=== PATIENT | female | born 1955 | race Caucasian/White ===

== ENCOUNTER → 2016-10-20 | Outpatient (CLI) | payer BC ==
[~2016-10-20] MED LIST: CATHETER FLUSH 10 ML SYR IV PRN; HYDR-32; IOHEXOL 350 MG/ML 100 ML (OMNIPAQUE 350) VIAL IV ONE; NS 100 ML (IVPB) BAG IV ONE; SULFAMETHOXAZOLE; SYNTHROID; TRIMETHOPRIM
--- NOTE | 2016-10-20 13:13 | Diagnostic Imaging Report ---
PROCEDURE: CT abdomen and pelvis with and without contrast. TECHNIQUE: Precontrast acquisitions were acquired through the abdomen and pelvis. Multiple contiguous axial images were obtained through the abdomen and pelvis after the administration of intravenous contrast. INDICATION: Abdominal pain and pressure. 100 mL of Omnipaque 350 is administered intravenously. FINDINGS: The lung bases appear clear. There is a simple appearing hepatic cyst in the left lobe anteriorly measuring 4 cm. There is another simple appearing cyst measuring 1.2 cm in the anterior central aspect of the liver. These are larger compared to 2009 exam but without solid component seen. There are multiple calcified gallstones. The spleen is not enlarged. The adrenals appear unremarkable. The kidneys have symmetric enhancement and contrast excretion. No hydronephrosis. The unenhanced phase demonstrates no urinary tract stones. The abdominal aorta is normal in caliber. No para-aortic significantly enlarged lymph nodes are seen. Sutures near the base of the cecum is seen, may relate to prior appendectomy. Correlate with surgical history. There is no bowel obstruction. A few diverticula are seen in the sigmoid colon. No evidence of diverticulitis. No significant free fluid or fluid collection in the abdomen or pelvis is seen. The uterus and adnexa appear grossly unremarkable. There is mild left convexity scoliosis of the lumbar spine. IMPRESSION: 1. Cholelithiasis. 2. Diverticulosis. No diverticulitis. Dictated by: Dictated on workstation # [id number]
== END ==
LOC: RAD 09:17
PROVIDERS: ATTEND Obstetrics & Gynecology
DX: K80.20 Calculus of gallbladder without cholecystitis without obstruction (principal); K57.30 Diverticulosis of large intestine without perforation or abscess without bleeding; Z87.19 Personal history of other diseases of the digestive system
CPT/HCPCS: 74178

== ENCOUNTER → 2018-02-21 | Outpatient (CLI) | payer BC ==
[~2018-02-21] MED LIST changes: -CATHETER FLUSH 10 ML SYR IV PRN; -IOHEXOL 350 MG/ML 100 ML (OMNIPAQUE 350) VIAL IV ONE; -NS 100 ML (IVPB) BAG IV ONE
--- NOTE | 2018-02-21 12:59 | Diagnostic Imaging Report ---
Indication: Osteopenia. Comparison is made with prior DEXA scan from 02/10/2016. Bone mineral analysis in the lumbar spine and both hips was performed. Bone mineral density lumbar spine at L2-L4 is 1.156 with T score of -0.4. This compares with 1.013 and -1.6. Bone mineral density left femoral neck is 0.749 with T score of -2.1. This compares with 0.741 and -2.1. Bone mineral density right femoral neck is 0.794 with T score of -1.8. This compares with 0.796 and -1.7. Impression: Normal bone mineral density of the lumbar spine with osteopenia of bilateral femoral necks. Dictated by: Dictated on workstation # [id number]
== END ==
LOC: RAD 02-01 15:28
PROVIDERS: ATTEND Internal Medicine Endocrinology, Diabetes & Metabolism
DX: M85.88 Other specified disorders of bone density and structure, other site (principal)
CPT/HCPCS: 77080

== ENCOUNTER → 2018-10-04 | Outpatient (CLI) | payer BC ==
--- NOTE | 2018-10-04 12:22 | Diagnostic Imaging Report ---
EXAMINATION: Digital mammogram bilateral screening. The current study was also evaluated with a Computer Aided Detection (CAD) system. 3D tomosynthesis was also performed and reviewed. INDICATION: Screening. COMPARISON: This study was compared to the prior exams of 02/10/2016 and 11/04/2014. At this time, there are no current complaints. FINDINGS: The fibroglandular tissue in both breasts is dense. This does limit the sensitivity of this exam. Overall, there does not appear to have been any significant change when compared to the prior study. No primary or secondary sign of malignancy is noted. The 3D tomographic views also fail to show any evidence of malignancy. IMPRESSION: 1. There is no evidence of malignancy. 2. The patient should have her annual bilateral screening mammogram on schedule in September of 2019. ACR BI-RADS Category 1: Negative. Result letter will be mailed to the patient. Note: At least 10% of breast cancer is not imaged by mammography. Dictated by: Dictated on workstation # [id number]
== END ==
LOC: RAD 07:11
PROVIDERS: ATTEND Obstetrics & Gynecology
DX: Z12.31 Encounter for screening mammogram for malignant neoplasm of breast (principal)
CPT/HCPCS: 77067

== ENCOUNTER → 2020-02-24 | Outpatient (CLI) | payer BC ==
--- NOTE | 2020-02-24 09:55 | Diagnostic Imaging Report ---
INDICATION: Postmenopausal. COMPARISON: 02/21/2018. TECHNIQUE: The bone mineral density of the hips and spine was measured. FINDINGS: The total T score for the spine is -2.1. On the prior exam, the T score was -0.4. The current T score does indicate severe osteopenia. The total T score for the left hip is -1.6 and for the right hip -1.5. On the prior exam, the respective T scores were -1.6 and -1.3. The T score for the left femoral neck is -2.1 and for the right is -1.9. Previously, the T scores were -2.1 and -1.8. IMPRESSION: 1. There has been a decrease in the bone mineral density of the spine and the T score value now indicates severe osteopenia. 2. The bone mineral density of the hips and femoral necks has not changed significantly. These values fall within the range of osteopenia as well. AP Spine L1-L4: [BMD (g/cm2): 0.953] [T-Score: -2.1] [Z-Score: -0.4] [BMD Previous: 1.156] [BMD % Change: -17.6] LT Hip Neck: [BMD (g/cm2): 0.741] [T-Score: -2.1] [Z-Score: -0.6] LT Hip Total: [BMD (g/cm2):0.806] [T-Score:-1.6] [Z-Score: -0.4] [BMD Previous: 0.810] [BMD % Change: -0.5] RT Hip Neck: [BMD (g/cm2):0.780] [T-Score:-1.9] [Z-Score:-0.4] RT Hip Total: [BMD (g/cm2):0.818] [T-score:-1.5] [Z-Score:-0.3] [BMD Previous:0.842] [BMD % Change:-2.9] *Indicates significant change from prior examination based on 95% confidence level. World Health Organization criteria for BMD interpretation classify patients as Normal (T-score at or above -1.0), Osteopenic (T-score between -1.0 and -2.5) or Osteoporotic (T-score at or below -2.5). LIMITATIONS AND MODIFICATION: None. FRACTURE RISK (FRAX SCORE): The ten year probability of (%): Major Osteoporotic Fracture: [10.6] Hip Fracture: [1.8] IMPRESSION: 1. 2. 3. See below National Osteoporosis Foundation guidelines on when to potentially initiate pharmacologic therapy. Based on the National Osteoporosis Foundation Guidelines, pharmacologic treatment should be initiated in any of the following, unless clinical conditions suggest otherwise: * Any patient with prior fragility fracture of the hip or vertebrae. A spine fracture indicates 5X risk for subsequent spine fracture and 2X risk for subsequent hip fracture. * Osteoporosis (T-score <-2.5). * Postmenopausal women and men age 50 and older with low bone mass/osteopenia (T-score between -1.0 and -2.5) by DXA and 10-year major osteoporotic fracture greater than 20% or a 10-year probability of hip fracture greater than 3%. These fracture risks are supplied above in the FRAX score, if applicable. * Clinician judgement and/or patient preferences may indicate treatment for people with 10-year fracture probabilities above or below these levels. Dictated by: Dictated on workstation # [id number]
== END ==
LOC: RAD 08:30
PROVIDERS: ATTEND Internal Medicine Endocrinology, Diabetes & Metabolism
DX: M85.88 Other specified disorders of bone density and structure, other site (principal)
CPT/HCPCS: 77080

== ENCOUNTER → 2020-06-07 | Outpatient (CLI) | payer BC ==
--- NOTE | 2020-06-07 13:28 | Diagnostic Imaging Report ---
PROCEDURE: US Non-ob pelvis comp/trans. TECHNIQUE: Multiple Real-time grayscale images were obtained of the pelvis in various projections endovaginally. Transabdominal imaging was also performed. INDICATION: Dysfunctional uterine bleeding. COMPARISON: There are no prior studies available for comparison. FINDINGS: The uterus is not enlarged measuring 8.1 x 4.1 x 4.9 cm. The endometrial lining is not thickened measuring 2 mm. There is no focal mass involving the uterus to suggest a fibroid. Both ovaries are identified and are generally unremarkable. There is no pelvic mass or free fluid collection evident. IMPRESSION: 1. There is no evidence for an acute pelvic abnormality. 2. The endometrial lining is not thickened. Dictated by: Dictated on workstation # [id number]
--- NOTE | 2020-06-07 16:39 | Diagnostic Imaging Report ---
EXAMINATION: Digital mammogram bilateral screening with cad. INDICATION: Screening. COMPARISON: This study was compared to the prior exams of 10/04/2018, 02/10/2016, and 11/04/2014. PERSONAL HISTORY: At this time, there are no current complaints. FINDINGS: The fibroglandular tissue in both breasts is heterogeneously dense. This does limit the sensitivity of this exam. Overall, there does not appear to have been any significant change when compared to the prior study. No primary or secondary sign of malignancy is noted. IMPRESSION: There is no radiographic evidence for malignancy. ACR BI-RADS Category 1: Negative. Result letter will be mailed to the patient. Note: At least 10% of breast cancer is not imaged by mammography. Dictated by: Dictated on workstation # [id number]
== END ==
LOC: RAD 11:50
PROVIDERS: ATTEND Obstetrics & Gynecology
DX: Z12.31 Encounter for screening mammogram for malignant neoplasm of breast (principal); N93.9 Abnormal uterine and vaginal bleeding, unspecified
CPT/HCPCS: 76830; 76856; 77063; 77067

== ENCOUNTER 2020-09-22 11:50 | Outpatient (CLI) | payer BC ==
[~2020-09-22] VITALS: Ht 167.7 cm; Wt 63.1 kg
== END 2020-09-22 16:09 | disposition home or self-care (01) ==
LOC: PREOP 11:50
PROVIDERS: ATTEND Surgery
DX: Z01.818 Encounter for other preprocedural examination (principal)

== ENCOUNTER 2020-09-28 12:27 | Day surgery (SDC) | payer BC ==
[~2020-09-28] VITALS: Ht 167.7 cm; Wt 63.0 kg
[2020-09-28] VITALS (9 sets, daily range): BP systolic 107–135; BP diastolic 69–97
[~2020-09-28 12:27] MED LIST changes: +LACTATED RINGERS 1,000 ML IV ONE
[2020-09-28] MEDS ORDERED: LACTATED RINGERS 1,000 ML IV STA (12:30)
[2020-09-28] MEDS ORDERED: PROPOFOL INJECTION 50 ML IV ONE ×2 (12:53→13:09)
[2020-09-28] MEDS ORDERED: MIDAZOLAM 2 MG/2 ML (VERSED) VIAL ONE (12:53)
--- NOTE | 2020-09-28 13:38 | Progress Note-Post Operative ---
Post-Operative Progess Note Surgeon (s)/Java Application Developer (s) Surgeon BALJINDER LEE DO Java Application Developer: na Pre-Operative Diagnosis screening Post-Operative Diagnosis normal colon Procedure & Operative Findings Date of Procedure 09/28/20 Procedure Performed/Findings colonoscopy Anesthesia Type per lens grinder Estimated Blood Loss Estimated blood loss (mL): none Specimens/Packing Specimens Removed na BALJINDER LEE DO Sep 28, 2020 13:38
--- NOTE | 2020-09-28 13:39 | Discharge Inst-Simple/Standard ---
Discharge Inst-Standard Patient Instructions/Follow Up Plan of Care/Instructions/FU: repeat colonoscopy 10 years unless family hx of colon cancer or personal history of polyps. Any changes in bowel be re-evaluated at that time. Activity as Tolerated: Yes Discharge Diet: Regular Diet (high fiber) BALJINDER LEE DO Sep 28, 2020 13:39
--- NOTE | 2020-09-28 14:25 | Anesthesia-General Post-Op ---
MAC Patient Condition Mental Status/LOC: Same as Preop Cardiovascular: Satisfactory Nausea/Vomiting: Absent Respiratory: Satisfactory Pain: Controlled Complications: Absent Post Op Complications Complications None Follow Up Care/Instructions Patient Instructions None needed. Anesthesiology Discharge Order Discharge Order Patient is doing well, no complaints, stable vital signs, no apparent adverse anesthesia problems. No complications reported per nursing. MAYTE PATRICIA CRNA Sep 28, 2020 14:25
--- NOTE | 2020-09-28 17:01 | OPERATIVE REPORT ---
DATE OF SERVICE: 09/28/2020 PREOPERATIVE DIAGNOSIS: Screening colonoscopy. POSTOPERATIVE DIAGNOSIS: Diverticulosis. PROCEDURE: Colonoscopy. SURGEON: Baljinder Maddox DO ANESTHESIA: Per FURNITURE TECHNICIAN. ESTIMATED BLOOD LOSS: None. COMPLICATIONS: None. INDICATIONS: The patient is a 64-year-old female with need for screening colonoscopy. She understands risks and benefits of procedure and wished to proceed with procedure. Consent was signed in the chart. DESCRIPTION OF PROCEDURE: The patient was taken to the endoscopy suite, placed in left lateral recumbent position. Timeout was performed. Digital rectal exam was performed. No palpable polyps, masses or ulcerations. Scope was inserted in the rectum and advanced all the way to the ileocolonic anastomosis. Normal appearance. No polyps, masses or ulcerations. Scope was then slowly retracted back. There were no polyps, masses or ulcerations in the ileocecal anastomosis to the ascending, transverse, descending colon. In the sigmoid colon, a small amount of diverticulosis. No polyps, masses or ulcerations. Sigmoid was very redundant. Once in the rectum, scope was retroflexed noting no other pathology. Scope was returned to its normal position, slowly withdrawn until completely removed. The patient tolerated procedure well without any complications. She was taken to recovery room in stable condition. RECOMMENDATIONS: The patient will need repeat colonoscopy in 10 years unless family history of colon cancer, which would be 5 years. Any issues before that be seen at that time. Also recommended high fiber diet due to diverticulosis. Job ID: [id number] DocumentID: [id number] Dictated Date: 09/28/2020 13:41:25 Supervisor Grounds Date: 09/28/2020 17:00:58 Dictated By: BALJINDER MADDOX DO
== END 2020-09-28 14:30 | disposition home or self-care (01) ==
LOC: ENDO 12:27
PROVIDERS: ATTEND Surgery
DX: Z12.11 Encounter for screening for malignant neoplasm of colon (principal); K57.30 Diverticulosis of large intestine without perforation or abscess without bleeding; E03.9 Hypothyroidism, unspecified; Z79.899 Other long term (current) drug therapy; Z79.890 Hormone replacement therapy; Z90.49 Acquired absence of other specified parts of digestive tract

== ENCOUNTER → 2020-10-18 | Outpatient (CLI) | payer BC ==
[~2020-10-18] MED LIST changes: -LACTATED RINGERS 1,000 ML IV ONE
--- NOTE | 2020-10-18 14:44 | Diagnostic Imaging Report ---
PROCEDURE: Pelvic comp/transvaginal sonogram. TECHNIQUE: Complete transabdominal and transvaginal pelvic ultrasound was performed. In addition, limited pelvic Doppler was performed. INDICATION: Pelvic pain. Uterus is anteverted measuring 7.3 x 3.0 x 4.0 cm. Endometrium is 3 mm in thickness. No myometrial mass is detected. Right ovary measures 1.7 x 1.0 x 1.0 cm. There is blood flow to the right ovary. No adnexal mass or free fluid is seen. Left ovary was not visualized. A moderate vascularity in the left adnexa is noted which could be owing to pelvic congestion. IMPRESSION: Nonvisualized left ovary. There is vascularity to a left adnexa which could represent congestion. The study is otherwise unremarkable. Dictated by: Dictated on workstation # [id number]
== END ==
LOC: RAD 10:00
PROVIDERS: ATTEND Family Medicine
DX: R10.2 Pelvic and perineal pain (principal)
CPT/HCPCS: 76830; 76856

== ENCOUNTER → 2020-10-26 | Outpatient (CLI) | payer BC ==
[~2020-10-26] MED LIST changes: +CATHETER FLUSH 10 ML SYR IV PRN; +HOLD METFORMIN - RECEIVED CONTRAST 20 ML VIAL IV SCH; +IOHEXOL 350 MG/ML 100 ML (OMNIPAQUE 350) VIAL IV ONE; +NS 100 ML (IVPB) BAG IV ONE
[2020-10-26 07:07] LABS: CREATININE SERUM 1.01 MG/DL (0.60-1.30)
--- NOTE | 2020-10-26 08:35 | Diagnostic Imaging Report ---
EXAMINATION: CT abdomen and pelvis with intravenous contrast. TECHNIQUE: Multiple contiguous axial images were obtained through the abdomen and pelvis after the uneventful administration of intravenous contrast. All CT scans use one or more of the following dose optimizing techniques: automated exposure control, MA and/or KvP adjustment based on patient size and exam type or iterative reconstruction. HISTORY: Pelvic pressure. COMPARISON: 10/20/2016 FINDINGS: Limited views of the lower thorax are unremarkable. Cyst is present in liver. There are no suspicious liver lesions. There is no biliary ductal dilation. Gallbladder contains stones. Pancreas is normal. Spleen is normal. Adrenal glands are normal. The kidneys are normal. There is no hydronephrosis. Urinary bladder is normal. Visualized bowel is normal in caliber without obstruction or inflammation. No free fluid or air. No abdominal or pelvic lymphadenopathy. Aorta is normal in caliber without aneurysm. There are no suspicious osseous lesions. IMPRESSION: 1. Cholelithiasis, otherwise no acute abnormality. Dictated by: Dictated on workstation # [id number]
== END ==
LOC: RAD 06:41
PROVIDERS: ATTEND Family Medicine
DX: K80.20 Calculus of gallbladder without cholecystitis without obstruction (principal)
CPT/HCPCS: 36415; 74177; 82565; 84520

== ENCOUNTER → 2021-06-13 | Outpatient (CLI) | payer BC ==
[~2021-06-13] MED LIST changes: -CATHETER FLUSH 10 ML SYR IV PRN; -HOLD METFORMIN - RECEIVED CONTRAST 20 ML VIAL IV SCH; -IOHEXOL 350 MG/ML 100 ML (OMNIPAQUE 350) VIAL IV ONE; -NS 100 ML (IVPB) BAG IV ONE
--- NOTE | 2021-06-13 22:33 | Diagnostic Imaging Report ---
INDICATION: Digital mammogram bilateral screening. At this time there is no current complaint. COMPARISON: This study was compared to the prior exams of 06/07/2020, 10/04/2018 and 02/10/2016. EXAMINATION: Bilateral digital screening mammogram with CAD. 3D tomographic images were obtained and reviewed. The current study was also evaluated with a Computer Aided Detection (CAD) system. FINDINGS: The fibroglandular tissue in both breasts is dense. This does limit the sensitivity of this exam. Overall, there does not appear to have been any significant change when compared to the prior study. No primary or secondary sign of malignancy is noted. IMPRESSION: There is no radiographic evidence for malignancy. ACR BI-RADS Category 1: Negative. Result letter will be mailed to the patient. Note: At least 10% of breast cancer is not imaged by mammography. Dictated by: Dictated on workstation # [id number]
== END ==
LOC: RAD 15:45
PROVIDERS: ATTEND Family Medicine
DX: Z12.31 Encounter for screening mammogram for malignant neoplasm of breast (principal)
CPT/HCPCS: 77063; 77067

== ENCOUNTER → 2021-09-13 | Outpatient (CLI) | payer BC ==
--- NOTE | 2021-09-13 14:41 | Diagnostic Imaging Report ---
INDICATION: Neck pain and upper back pain. Time of Exam: 10:03 AM There is reversal of the normal cervical lordotic curvature. There is minimal anterolisthesis of C3 on C4. There is severe degenerative disease C4-C5 and C5-C6 levels with moderate disc space narrowing and marginal osteophyte formation. There is moderate degenerative disc disease C6-C7 levels. Prevertebral tissues are normal. No fractures are seen. A majority of the odontoid is obscured on the odontoid view. IMPRESSION: Cervical spondylosis with reversal of the normal cervical curvature as well as minimal anterolisthesis of C3 on C4. No acute bony abnormality is detected. Dictated by: Dictated on workstation # [id number]
--- NOTE | 2021-09-13 14:41 | Diagnostic Imaging Report ---
INDICATION: Upper back pain. There is normal thoracic kyphotic curvature. There is S-shaped thoracolumbar scoliotic curvature, convex to the right in the thoracic portion and convex to the left in the lumbar portion. Vertebral body heights appear to be well-maintained. No compression fractures are seen. There is some mid thoracic degenerative disc disease. Pedicles and paraspinous line are intact. No definite vertebral body anomaly is detected. IMPRESSION: Thoracolumbar scoliotic curvature and spondylosis. No acute bony abnormality is detected. Dictated by: Dictated on workstation # [id number]
== END ==
LOC: RAD 09:38
PROVIDERS: ATTEND Family Medicine
DX: M47.814 Spondylosis without myelopathy or radiculopathy, thoracic region (principal); M41.84 Other forms of scoliosis, thoracic region; M47.812 Spondylosis without myelopathy or radiculopathy, cervical region
CPT/HCPCS: 72040; 72072

== ENCOUNTER → 2021-12-14 | Outpatient (CLI) | payer BC ==
--- NOTE | 2021-12-14 07:49 | Diagnostic Imaging Report ---
PROCEDURE: US Gallbladder. TECHNIQUE: Multiple real-time grayscale images were obtained over the right upper quadrant in various projections. INDICATION: Gallstones, liver cyst COMPARISON: CT from 10/26/2020 FINDINGS: Echogenicity of the visible pancreas appears normal and size is normal. There does appear to be a 5 mm cystic structure at the anterior body of the pancreas. The tail is obscured by bowel gas. Imaged portions of the aorta and IVC are unremarkable. The liver is normal in size. Echogenicity appears normal. There is a large cyst in the left liver measuring 5.5 cm in greatest dimension. No solid liver lesions are seen and there is no biliary dilatation identified. The main portal vein is hepatopetal. The common bile duct measures 5 mm. The gallbladder wall is not thickened. There are multiple shadowing stones in the gallbladder, measuring up to 1.3 cm in diameter. Sonographic Rocha sign is negative. No free fluid is seen. The right kidney measures 9.8 cm in length. There is no hydronephrosis. IMPRESSION: 1. Cholelithiasis without findings of cholecystitis. 2. Large cyst in the left liver measuring up to 5.5 cm. 3. Small cystic structure at the anterior body of the pancreas. Consider nonemergent follow-up with MRCP. Dictated by: Dictated on workstation # [id number]
== END ==
LOC: RAD 06:58
PROVIDERS: ATTEND Family Medicine
DX: K80.20 Calculus of gallbladder without cholecystitis without obstruction (principal); K76.89 Other specified diseases of liver; K86.2 Cyst of pancreas
CPT/HCPCS: 76705

== ENCOUNTER → 2021-12-21 | Outpatient (CLI) | payer BC ==
--- NOTE | 2021-12-21 10:18 | Diagnostic Imaging Report ---
PROCEDURE: MR imaging cholangiography-pancreatography. TECHNIQUE: Multiplanar and multisequence MRI of the abdomen was performed without contrast. 3D reconstructions were made for the MRCP. INDICATION: Liver cyst. Possible abnormality in the pancreas. Further characterization. COMPARISON: 12/14/2021. 10/26/2020. FINDINGS: Simple appearing cyst is seen within the left hepatic lobe measuring 4.8 x 3.5 cm and 4.5 cm craniocaudal. This does not appear changed in size since the prior exam from 2020. A smaller cyst is seen adjacent to this. No suspicious hepatic lesions are identified. No evidence of signal drop on out of phase imaging to suggest hepatic steatosis. No intra or extrahepatic biliary dilation. The portal vein is patent. Cholelithiasis is seen within a nondistended gallbladder. No evidence of gallbladder wall thickening. The common bile duct is nondilated and measures 0.4 cm. The pancreatic duct is normal in size measuring 0.2 cm in the head of the pancreas. There is a small cyst within the body of the pancreas measuring 0.3 cm which appears to connect to the pancreatic duct. No peripancreatic inflammatory changes are seen. No suspicious pancreatic lesions. The spleen is upper limits of normal measuring 11.4 cm. No focal splenic lesions are seen. No ascites is visualized in the upper abdomen. The kidneys have a normal MR appearance without acute abnormality. The bilateral adrenal glands are unremarkable. No lymphadenopathy is seen in the abdomen. The included loops of bowel are nondistended. The lung bases are clear. The heart size is normal. IMPRESSION: 1. Small cyst within the body of pancreas measuring 0.3 cm with likely connection to the pancreatic duct. This is favored to represent a dilated branch radical. IPMN is not completely excluded and follow-up to be considered in 12 months with MRI of the abdomen to ensure stability. 2. Cholelithiasis without evidence of acute cholecystitis or choledocholithiasis. No intra or extra hepatic biliary dilation. 3. Benign-appearing hepatic cysts, similar in size to the prior exam. Dictated by: Dictated on workstation # [id number]
== END ==
LOC: RAD 08:45
PROVIDERS: ATTEND Family Medicine
DX: K86.2 Cyst of pancreas (principal); K80.20 Calculus of gallbladder without cholecystitis without obstruction; K76.89 Other specified diseases of liver
CPT/HCPCS: 74181

== ENCOUNTER → 2022-05-23 | Outpatient (CLI) | payer MEDICARE, OTHER ==
--- NOTE | 2022-05-23 15:51 | Diagnostic Imaging Report ---
INDICATION: Thyroiditis and postmenopausal COMPARISON: 02/24/2020 FINDINGS: AP Spine L1-L4: [BMD (g/cm2): 1.065] [T-Score: -1.1] [Z-Score: 0.8] [BMD Previous: 0.953] [BMD % Change: 11.8] LT Hip Neck: [BMD (g/cm2): 0.740] [T-Score: -2.1] [Z-Score: -0.4] LT Hip Total: [BMD (g/cm2):0.823] [T-Score:-1.5] [Z-Score: 0.0] [BMD Previous: 0.806] [BMD % Change: 2.1] RT Hip Neck: [BMD (g/cm2):0.807] [T-Score:-1.7] [Z-Score:0.0] RT Hip Total: [BMD (g/cm2):0.860] [T-score:-1.2] [Z-Score:0.3] [BMD Previous:0.818] [BMD % Change:5.1] *Indicates significant change from prior examination based on 95% confidence level. World Health Organization criteria for BMD interpretation classify patients as Normal (T-score at or above -1.0), Osteopenic (T-score between -1.0 and -2.5) or Osteoporotic (T-score at or below -2.5). LIMITATIONS AND MODIFICATION: None. FRACTURE RISK (FRAX SCORE): The ten year probability of (%): Major Osteoporotic Fracture: [10.4] Hip Fracture: [2.0] IMPRESSION: 1. Osteopenia (Low bone mass). 2. There has been a statistically significant increase in BMD since prior exam, detailed above. 3. See below National Osteoporosis Foundation guidelines on when to potentially initiate pharmacologic therapy. Based on the National Osteoporosis Foundation Guidelines, pharmacologic treatment should be initiated in any of the following, unless clinical conditions suggest otherwise: * Any patient with prior fragility fracture of the hip or vertebrae. A spine fracture indicates 5X risk for subsequent spine fracture and 2X risk for subsequent hip fracture. * Osteoporosis (T-score <-2.5). * Postmenopausal women and men age 50 and older with low bone mass/osteopenia (T-score between -1.0 and -2.5) by DXA and 10-year major osteoporotic fracture greater than 20% or a 10-year probability of hip fracture greater than 3%. These fracture risks are supplied above in the FRAX score, if applicable. * Clinician judgement and/or patient preferences may indicate treatment for people with 10-year fracture probabilities above or below these levels. Dictated by: Dictated on workstation # [id number]
== END ==
LOC: RAD 12:30
PROVIDERS: ATTEND Internal Medicine Endocrinology, Diabetes & Metabolism
DX: M85.80 Other specified disorders of bone density and structure, unspecified site (principal); E06.9 Thyroiditis, unspecified; Z78.0 Asymptomatic menopausal state
CPT/HCPCS: 77080

== ENCOUNTER → 2022-06-27 | Outpatient (CLI) | payer MEDICARE, OTHER ==
[~2022-06-27] VITALS: Ht 167 cm; Wt 56.3 kg
[~2022-06-27] MED LIST changes: +CATHETER FLUSH 10 ML SYR IV PRN; +CATHETER FLUSH 10 ML SYR IV SCH; +NS IV 1000 ML 1,000 ML IV SCH; +ZOLEDRONATE (RECLAST) 5 MG/100 ML IV ONE
[2022-06-27 11:09] VITALS: BP 119/86
== END ==
LOC: SDC 10:01
PROVIDERS: ATTEND Internal Medicine Endocrinology, Diabetes & Metabolism
DX: M85.80 Other specified disorders of bone density and structure, unspecified site (principal); E55.9 Vitamin D deficiency, unspecified; Z68.20 Body mass index [BMI] 20.0-20.9, adult
CPT/HCPCS: 96365

== ENCOUNTER → 2022-09-26 | Outpatient (CLI) | payer MEDICARE, OTHER ==
[~2022-09-26] MED LIST changes: -CATHETER FLUSH 10 ML SYR IV PRN; -CATHETER FLUSH 10 ML SYR IV SCH; -NS IV 1000 ML 1,000 ML IV SCH; -ZOLEDRONATE (RECLAST) 5 MG/100 ML IV ONE
--- NOTE | 2022-09-26 10:44 | Diagnostic Imaging Report ---
EXAMINATION: MRI of the abdomen without contrast. MRCP TECHNIQUE: Multiplanar, multisequence MR images of the abdomen were obtained without intravenous contrast including 3D MIP MRCP images generated at an independent workstation. HISTORY: Pancreatic cyst follow-up. COMPARISON: 12/21/2021 FINDINGS: Liver: Hepatic cysts are present measuring up to 5.4 cm. Gallbladder and Bile Ducts: Small stones are present within the gallbladder. No biliary ductal dilatation or filling defect. Pancreas: Stable size and appearance of a 0.7 x 0.5 cm cystic lesion within the pancreas with likely connection pancreatic duct. No new suspicious pancreatic lesion or ductal dilatation. Spleen: Normal. Adrenal glands: Normal in configuration. No nodule. Kidneys: Normal in size and contour. No hydronephrosis. Lymph Nodes: No abdominal lymphadenopathy. Other: No ascites. IMPRESSION: 1. Stable 0.7 x 0.5 cm cystic lesion within the pancreas possibly a side branch type IPMN. Recommend continued MRI surveillance in 2 years. 2. Cholelithiasis. Dictated by: Dictated on workstation # [id number]
== END ==
LOC: RAD 09:44
PROVIDERS: ATTEND Family Medicine
DX: K86.2 Cyst of pancreas (principal); K80.20 Calculus of gallbladder without cholecystitis without obstruction
CPT/HCPCS: 74181

== ENCOUNTER → 2022-12-26 | Outpatient (CLI) | payer MEDICARE, OTHER ==
--- NOTE | 2022-12-26 15:23 | Diagnostic Imaging Report ---
Indication: Routine screening. Comparison is made with prior mammograms 06/13/2021 and 06/07/2020. 2-D and 3-D bilateral screening mammography was performed with CAD. Both breasts are heterogeneously dense, limiting the sensitivity of mammography. The parenchymal pattern is stable. No mass or malignant-appearing microcalcifications are seen. There are benign calcifications. Axillae are unremarkable. IMPRESSION: BI-RADS Category 2 No mammographic features suspicious for malignancy are identified. ACR BI-RADS Category 2: Benign findings. Result letter will be mailed to the patient. Note: At least 10% of breast cancer is not imaged by mammography. Dictated by: Dictated on workstation # [id number]
== END ==
LOC: RAD 08:50
PROVIDERS: ATTEND Family Medicine
DX: Z12.31 Encounter for screening mammogram for malignant neoplasm of breast (principal)
CPT/HCPCS: 77063; 77067